=== PATIENT | female | born 1950 | race Caucasian/White ===

== ENCOUNTER 2019-06-18 22:27 | Emergency (ER) | payer OTHER ==
--- NOTE | 2019-06-18 23:10 | NUR ---
PATIENT CALLED TO BE TRIAGE NO RESPONSE PATIENT LEFT WITHOUT BEING SEEN BY DR. BOOKER. NO FURTHER CARE PROVIDED FOR PATIENT.
--- NOTE | 2019-06-18 23:15 | NUR ---
CALLED FOR THE SECOND TIME , JOHN
--- NOTE | 2019-06-18 23:20 | NUR ---
CALLED FOR THE THIRD TIME NO RESPONSE
== END 2019-06-18 23:10 | disposition left against medical advice (07) ==
LOC: MED 22:27
DX: Z53.21 Procedure and treatment not carried out due to patient leaving prior to being seen by health care provider (principal)